=== PATIENT | female | born 1965 | race African-American/Black ===

== ENCOUNTER 2023-12-26 10:41 | Emergency (ER) | payer SELFPAY ==
[2023-12-26] MEDS ORDERED: NA CHLORIDE 0.9% 1,000 ML ONE (11:03)
[2023-12-26] MEDS ORDERED: NA CHLORIDE 0.9% 500 ML ONE (11:03)
--- NOTE | 2023-12-26 11:21 | RAD REPORT ---
EXAM DESCRIPTION: Kilo Single View12/26/2023 11:15 am CLINICAL HISTORY: Cough COMPARISON: none FINDINGS: The lungs appear clear of acute infiltrate. The heart is borderline enlarged IMPRESSION: No acute abnormalities displayed
[2023-12-26 11:42] LABS: Absolute Basophils 0.1 K/uL (0-0.5); Absolute Eosinophils 0.1 K/uL (0-0.5); Absolute Lymphocytes (CBC) 1.1 K/uL (0.7-4.9); Absolute Monocytes 0.5 K/uL (0.1-1.3); Absolute Neutrophil 3.2 K/uL (1.8-8.0); Basophils % 1.4 % (0-1.3); Eosinophils % 2.8 % (0-4.4); Hematocrit 41.4 % (36.0-45.0); Hemoglobin 13.6 g/dL (12.0-15.0); Lymphocytes % 21.7 % (15.3-44.8); MCH 34.7 pg (27.0-35.0); MCV 105.2 fL (80-100); MPV 8.1 fL (7.6-11.3); Neutrophils % 64.1 % (41.7-73.7); Platelets 240 thou/uL (152-406); RBC Red Blood Cell Count 3.94 M/uL (3.86-4.86); Red Cell Distribution Width 12.9 % (12.1-15.2)
[2023-12-26 11:43] LABS: Specific Gravity 1.017 (1.005-1.030); Sqamous Epithelial <5 /HPF (None Seen); Urine Bacteria None Seen /HPF (<20); Urine Bilirubin NEGATIVE (Negative); Urine Blood Negative (Negative); Urine Clarity Turbid (Clear); Urine Color Yellow (Yellow); Urine Culture Reflex Order NOT NEEDED; Urine Glucose NEGATIVE (Negative); Urine Ketones NEGATIVE (Negative); Urine Microscopic Reflex YN ORDER UMIC; Urine Mucus 2+ /HPF (None Seen); Urine Nitrite NEGATIVE (Negative); Urine Protein NEGATIVE (Negative); Urine RBC <5 /HPF (None Seen); Urine Urobilinogen Normal (Normal); Urine WBC <5 /HPF (<5)
[2023-12-26 11:44] LABS: Protime INR 1.28
[2023-12-26 12:06] LABS: Albumin 3.3 g/dL (3.4-5.0); Albumin/Globulin Ratio 0.8 (1.1-1.8); Anion Gap 5.8 mEq/L (5.0-15.0); Bilirubin Direct 0.2 mg/dL (0-0.2); Bilirubin Indirect, Calculated 0.2 mg/dL (0.2-0.8); Bilirubin Total 0.4 mg/dL (0.2-1.0); Globulin 3.9 g/dL (2.3-3.5); Magnesium 1.8 mg/dL (1.6-2.4); Potassium 3.8 mEq/L (3.5-5.1); Protein, Total 7.2 g/dL (6.4-8.2); Thyroid Stimulating Hormone 2.56 uIU/mL (0.358-3.740); Troponin High Sensitivity 7.7 pg/mL (<58.9)
[2023-12-26 12:22] LABS: Blood Morphology Comment NOTED (NOT SEEN); Macrocytosis 1+; Platelet Estimate ADEQ; White Blood Cell Scan OK (OK)
--- NOTE | 2023-12-26 14:57 | ER ---
Nurse's Notes [facility] Name: Lyssa Mcdaniel Age: 58 yrs Sex: Female : 1965 Arrival Date: 12/26/2023 Time: 10:41 Bed 19 Private MD: Diagnosis: Dizziness and giddiness;Alcohol abuse-HISTORY, NO ETOH PAST 1 WEEK Presentation: 12/25 10:43 Chief complaint: EMS states: pt is from [facility], currently in recovery for ETOH kc6 abuse. pts last drink was Friday and has been feeling dizzy, weak, and feeling like her heart rate is fast since last night. Coronavirus screen: At this time, the client does not indicate any symptoms associated with coronavirus-19. Ebola Screen: No symptoms or risks identified at this time. Initial Sepsis Screen: Does the patient meet any 2 criteria? No. Patient's initial sepsis screen is negative. Does the patient have a suspected source of infection? No. Patient's initial sepsis screen is negative. Risk Assessment: Do you want to hurt yourself or someone else? Patient reports no desire to harm self or others. Onset of symptoms was December 26, 2023. 10:43 Method Of Arrival: EMS: [facility] kc6 10:43 Acuity: SAVANNAH 3 kc6 Historical: - Allergies: 10:44 No Known Allergies; kc6 - PMHx: 10:44 Hypertensive disorder; Depressive disorder; kc6 10:44 Alcoholism; kc6 - PSHx: 10:44 None; kc6 - Immunization history:: Adult Immunizations up to date. - Infectious Disease History:: Denies. - Social history:: Smoking status: Patient denies any tobacco usage or history of. Screenin:45 [facility] ED Fall Risk Assessment (Adult) History of falling in the last 3 months, kc6 including since admission No falls in past 3 months (0 pts) Confusion or Disorientation No (0 pts) Intoxicated or Sedated No (0 pts) Impaired Gait No (0 pts) Mobility Assist Device Used No (0 pt) Altered Elimination No (0 pt) Score/Fall Risk Level 0 - 2 = Low Risk. Abuse screen: Denies threats or abuse. Denies injuries from another. Nutritional screening: No deficits noted. Tuberculosis screening: No symptoms or risk factors identified. Assessment: 11:00 General: Appears in no apparent distress. comfortable, well groomed, well developed, kc6 Behavior is calm, cooperative, appropriate for age, quiet. Pain: Denies pain. Neuro: Level of Consciousness is awake, alert, obeys commands, Oriented to person, place, time, situation, Appropriate for age Reports dizziness, weakness. Cardiovascular: Reports palpitations, Denies chest pain, Heart tones S1 S2 present Capillary refill < 3 seconds Rhythm is sinus rhythm. Respiratory: Airway is patent Trachea midline Respiratory effort is even, unlabored, Respiratory pattern is regular, symmetrical. GI: No signs and/or symptoms were reported involving the gastrointestinal system. : No signs and/or symptoms were reported regarding the genitourinary system. EENT: No signs and/or symptoms were reported regarding the EENT system. Derm: No signs and/or symptoms reported regarding the dermatologic system. Skin is intact, is healthy with good turgor, Skin is pink, warm \T\ dry. Musculoskeletal: No signs and/or symptoms reported regarding the musculoskeletal system. Circulation, motion, and sensation intact. Capillary refill < 3 seconds, Range of motion: intact in all extremities. 12:00 Reassessment: Patient appears in no apparent distress at this time. No changes from 6 previously documented assessment. Patient and/or family updated on plan of care and expected duration. Pain level reassessed. Patient is alert, oriented x 3, equal unlabored respirations, skin warm/dry/pink. 13:40 Reassessment: Patient appears in no apparent distress at this time. No changes from kc6 previously documented assessment. Patient and/or family updated on plan of care and expected duration. Pain level reassessed. Patient is alert, oriented x 3, equal unlabored respirations, skin warm/dry/pink. 14:40 Reassessment: Patient appears in no apparent distress at this time. No changes from 6 previously documented assessment. Patient and/or family updated on plan of care and expected duration. Pain level reassessed. Patient is alert, oriented x 3, equal unlabored respirations, skin warm/dry/pink. 15:19 Reassessment: SPOKE WITH NAOM[facility] AT [facility]. ETA FOR TRANSPORT IS 20MIN. PT OK TO WAIT [facility] FOR TRANSPORT IN THE LOBBY. Vital Signs: 10:43 BP 166 / 85; Pulse 63; Resp 15 S; Temp 97.3(O); Pulse Ox 100% on R/A; Weight 76.2 kg kc6 (R); Height 5 ft. 4 in. (R); 12:26 BP 166 / 107; Pulse 65; Resp 15 S; Pulse Ox 100% on R/A; kc6 13:40 BP 177 / 92; Pulse 64; Resp 18 S; Pulse Ox 99% on R/A; kc6 15:28 BP 177 / 85; Pulse 65; Resp 18 S; Pulse Ox 99% on R/A; kc6 10:43 Body Mass Index 28.84 (76.20 kg, 162.56 cm) kc6 ED Course: 10:42 Patient arrived in ED. daniela 10:42 Jay Jay Gould MD is Attending Physician. [facility] 10:43 Mali Zhao, ARMEN is Primary Nurse. kc6 10:44 Triage completed. kc6 10:44 Arm band placed on. kc6 10:45 Patient has correct armband on for positive identification. Bed in low position. Call kc6 light in reach. Side rails up X2. Client placed on continuous cardiac and pulse oximetry monitoring. NIBP monitoring applied. Warm blanket given. Pillow given. 11:17 XRAY Chest (1 view) In Process Unspecified. EDMS 11:34 Inserted saline lock: 22 gauge in left antecubital area, using aseptic technique. Blood kc6 collected. 14:46 CT Head Brain wo Cont In Process Unspecified. EDMS 15:27 No provider procedures requiring assistance completed. IV discontinued, intact, kc6 bleeding controlled, No redness/swelling at site. Pressure dressing applied. Administered Medications: 11:34 Drug: NS 0.9% IV 500 ml IV at bolus once Route: IV; Rate: bolus; Site: left antecubital;kc6 13:41 Follow up: Response: No adverse reaction; IV Status: Completed infusion; IV Intake: kc6 500ml 11:34 Drug: NS 0.9% IV 1000 ml IV at 125 ml/hr continuous Route: IV; Rate: 125 ml/hr; Site: kc6 left antecubital; 15:19 Drug: foLIC Acid IVPB 1 mg IVPB once Route: IVPB; Site: left antecubital; kc6 15:27 Follow up: Response: No adverse reaction; IV Status: Completed infusion; IV Intake: kc6 0.2ml 15:19 Drug: Thiamine IV 100 mg IV at bolus once Route: IV; Rate: bolus; Site: left kc6 antecubital; 15:27 Follow up: Response: No adverse reaction; IV Status: Completed infusion; IV Intake: 1ml kc6 Medication: 15:28 VIS not applicable for this client. kc6 Intake: 13:41 IV: 500ml; Total: 500ml. kc6 15:27 IV: 0ml; Total: 500ml. kc6 15:27 IV: 1ml; Total: 501ml. kc6 Outcome: 14:56 Discharge ordered by MD. suarez 15:28 Discharged to Rehab Facility kc6 15:28 Condition: improved 15:28 Discharge instructions given to patient, Instructed on discharge instructions, follow up and referral plans. medication usage, Demonstrated understanding of instructions, follow-up care, medications, Prescriptions given X 2, 15:29 Patient left the ED. kc6 Signatures: Dispatcher [employer] Jay Jay Cabrales MD MD cha Campbell, Kaitlyn RN RN kc6
--- NOTE | 2023-12-26 14:57 | EDPHYS ---
Physician Documentation [facility] Name: Lyssa Mcdaniel Age: 58 yrs Sex: Female : 1965 Arrival Date: 12/26/2023 Time: 10:41 Bed 19 Private MD: ED Physician Jay Jay Gould HPI: 12/25 14:26 This 58 yrs old Black Female presents to ER via EMS with complaints of General daniela Weakness, Dizziness, Palpitations. 14:26 The patient presents with dizziness, generalized weakness, lightheadedness. Onset: The daniela symptoms/episode began/occurred 2 day(s) ago. Context: occurred [place]. Modifying factors: The symptoms are alleviated by lying down, the symptoms are aggravated by standing up. Associated signs and symptoms: Pertinent positives: numbness. Severity of symptoms: At their worst the symptoms were mild in the emergency department the symptoms are unchanged. Patient's baseline: Neuro: alert and fully oriented. The patient has experienced similar episodes in the past, several times. Historical: - Allergies: 10:44 No Known Allergies; kc6 - PMHx: 10:44 Hypertensive disorder; Depressive disorder; kc6 10:44 Alcoholism; kc6 - PSHx: 10:44 None; kc6 - Immunization history:: Adult Immunizations up to date. - Infectious Disease History:: Denies. - Social history:: Smoking status: Patient denies any tobacco usage or history of. ROS: 14:29 Constitutional: Negative for fever, chills, and weight loss, Eyes: Negative for injury, daniela pain, redness, and discharge, ENT: Negative for injury, pain, and discharge, Neck: Negative for injury, pain, and swelling, Cardiovascular: Negative for chest pain, palpitations, and edema, Respiratory: Negative for shortness of breath, cough, wheezing, and pleuritic chest pain, Abdomen/GI: Negative for abdominal pain, nausea, vomiting, diarrhea, and constipation, Back: Negative for injury and pain, : Negative for injury, bleeding, discharge, and swelling, MS/Extremity: Negative for injury and deformity, Skin: Negative for injury, rash, and discoloration, Psych: Negative for depression, anxiety, suicide ideation, homicidal ideation, and hallucinations, Allergy/Immunology: Negative for hives, rash, and allergies, Endocrine: Negative for neck swelling, polydipsia, polyuria, polyphagia, and marked weight changes, Hematologic/Lymphatic: Negative for swollen nodes, abnormal bleeding, and unusual bruising, 14:29 Neuro: Positive for dizziness, weakness, Exam: 14:29 Constitutional: This is a well developed, well nourished patient who is awake, alert, daniela and in no acute distress. Head/Face: Normocephalic, atraumatic. Eyes: Pupils equal round and reactive to light, extra-ocular motions intact. Lids and lashes normal. Conjunctiva and sclera are non-icteric and not injected. Cornea within normal limits. Periorbital areas with no swelling, redness, or edema. ENT: Nares patent. No nasal discharge, no septal abnormalities noted. Tympanic membranes are normal and external auditory canals are clear. Oropharynx with no redness, swelling, or masses, exudates, or evidence of obstruction, uvula midline. Mucous membranes moist. Neck: Trachea midline, no thyromegaly or masses palpated, and no cervical lymphadenopathy. Supple, full range of motion without nuchal rigidity, or vertebral point tenderness. No Meningismus. Chest/axilla: Normal chest wall appearance and motion. Nontender with no deformity. No lesions are appreciated. Cardiovascular: Regular rate and rhythm with a normal S1 and S2. No gallops, murmurs, or rubs. Normal PMI, no JVD. No pulse deficits. Respiratory: Lungs have equal breath sounds bilaterally, clear to auscultation and percussion. No rales, rhonchi or wheezes noted. No increased work of breathing, no retractions or nasal flaring. Abdomen/GI: Soft, non-tender, with normal bowel sounds. No distension or tympany. No guarding or rebound. No evidence of tenderness throughout. Back: No spinal tenderness. No costovertebral tenderness. Full range of motion. Female : Normal external genitalia. Skin: Warm, dry with normal turgor. Normal color with no rashes, no lesions, and no evidence of cellulitis. MS/ Extremity: Pulses equal, no cyanosis. Neurovascular intact. Full, normal range of motion. Neuro: Awake and alert, GCS 15, oriented to person, place, time, and situation. Cranial nerves II-XII grossly intact. Motor strength 5/5 in all extremities. Sensory grossly intact. Cerebellar exam normal. Normal gait. Psych: Awake, alert, with orientation to person, place and time. Behavior, mood, and affect are within normal limits. 14:29 ECG was reviewed by the Attending Physician. Vital Signs: 10:43 BP 166 / 85; Pulse 63; Resp 15 S; Temp 97.3(O); Pulse Ox 100% on R/A; Weight 76.2 kg kc6 (R); Height 5 ft. 4 in. (R); 12:26 BP 166 / 107; Pulse 65; Resp 15 S; Pulse Ox 100% on R/A; kc6 13:40 BP 177 / 92; Pulse 64; Resp 18 S; Pulse Ox 99% on R/A; kc6 15:28 BP 177 / 85; Pulse 65; Resp 18 S; Pulse Ox 99% on R/A; kc6 10:43 Body Mass Index 28.84 (76.20 kg, 162.56 cm) kc6 MDM: 10:43 Patient medically screened. daniela 14:30 Differential diagnosis: arrythmia, dehydration. Differential Diagnosis altered mental daniela status, flu. Differential diagnosis: cardiac arrhythmia, head injury, hypovolemia, idiopathic dizziness, near-syncope, TIA. Data reviewed: vital signs, nurses notes, EMS record, lab test result(s), EKG, radiologic studies, CT scan, plain films. Consideration of Admission/Observation Escalation of care including admission/observation considered. I considered the following discharge prescriptions or medication management in the emergency department Medications were administered in the Emergency Department. See MAR. Independent interpretation of the following test(s) in the Emergency Department EKG: See my EKG interpretation above. Test considered but Not performed: MRI: no mri brain. Care significantly affected by the following chronic conditions: Hypertension, Obesity, depression, alcoholism. 12/25 10:46 Order name: Basic Metabolic Panel; Complete Time: 14:17 daniela 12/25 10:46 Order name: CBC with Diff; Complete Time: 14:17 12/25 10:46 Order name: LFT's; Complete Time: 14:17 12/25 10:46 Order name: Magnesium; Complete Time: 14:17 12/25 10:46 Order name: NT PRO-BNP; Complete Time: 14:17 12/25 10:46 Order name: PT-INR; Complete Time: 14:17 12/25 10:46 Order name: Troponin HS; Complete Time: 14:17 [facility] 12/25 10:46 Order name: TSH; Complete Time: 14:17 [facility] 12/25 10:47 Order name: Urinalysis w/ reflexes; Complete Time: 14:17 [facility] 12/25 12:22 Order name: CBC Smear Scan; Complete Time: 14:17 [facility] 12/25 10:46 Order name: XRAY Chest (1 view); Complete Time: 14:17 [facility] 12/25 14:26 Order name: CT Head Brain wo Cont [facility] 12/25 10:46 Order name: EKG; Complete Time: 10:47 [facility] 12/25 10:46 Order name: Cardiac monitoring; Complete Time: 11:34 [facility] 12/25 10:46 Order name: EKG - Nurse/Tech; Complete Time: :34 [facility] 12/25 10:46 Order name: IV Saline Lock; Complete Time: 11:34 [facility] 12/25 10:46 Order name: Labs collected and sent; Complete Time: 11:34 [facility] 12/25 10:46 Order name: O2 Per Protocol; Complete Time: 10:47 [facility] 12/25 10:46 Order name: O2 Sat Monitoring; Complete Time: 10:47 [facility] EC:29 Rate is 56 beats/min. NC interval is normal. QRS interval is normal. QT interval is daniela normal. No Q waves. T waves are Normal. No ST changes noted. Clinical impression: NSR w/ Non-specific ST/T Changes and LVH. Interpreted by me. Reviewed by me. Administered Medications: 11:34 Drug: NS 0.9% IV 500 ml IV at bolus once Route: IV; Rate: bolus; Site: left antecubital;6 13:41 Follow up: Response: No adverse reaction; IV Status: Completed infusion; IV Intake: kc6 500ml 11:34 Drug: NS 0.9% IV 1000 ml IV at 125 ml/hr continuous Route: IV; Rate: 125 ml/hr; Site: kc left antecubital; 15:19 Drug: foLIC Acid IVPB 1 mg IVPB once Route: IVPB; Site: left antecubital; kc6 15:27 Follow up: Response: No adverse reaction; IV Status: Completed infusion; IV Intake: kc6 0.2ml 15:19 Drug: Thiamine IV 100 mg IV at bolus once Route: IV; Rate: bolus; Site: left kc antecubital; 15:27 Follow up: Response: No adverse reaction; IV Status: Completed infusion; IV Intake: 1ml kc6 Disposition Summary: 12/26/23 14:56 Discharge Ordered Notes: Location: Home daniela Problem: new daniela Symptoms: have improved daniela Condition: Stable daniela Diagnosis - Dizziness and giddiness daniela - Alcohol abuse - HISTORY, NO ETOH PAST 1 WEEK daniela Followup: daniela - With: Private Physician - When: 2 - 3 days - Reason: Recheck today's complaints, Continuance of care, Re-evaluation by your physician Discharge Instructions: - Discharge Summary Sheet daniela - Dizziness daniela - Alcohol Abuse and Nutrition daniela - Dizziness, [id number] [facility] Forms: - Medication Reconciliation Form daniela - Antibiotic Education daniela - Prescription Opioid Use daniela - Patient Portal Instructions [facility] - Leadership Thank You Letter [facility] Prescriptions: - - take 1 tablet ORAL route once daily; 30 tablet; Refills: 0, Product Selection daniela Permitted - Meclizine 25 mg Oral Tablet - take 1 tablet ORAL route every 8 hours As needed; 30 tablet; Refills: 0, [facility] Product Selection Permitted Signatures: Dispatcher [employer] EDJay Jay Sherman MD MD cha Campbell, Kaitlyn RN RN kc6 Corrections: (The following items were deleted from the chart) 10:47 10:47 BASIC METABOLIC PANEL+C.LAB.BRZ ordered. EDMS EDMS 10:47 10:47 CBC+H.LAB.BRZ ordered. EDMS EDMS 10:47 10:47 HEPATIC FUNCTION+C.LAB.BRZ ordered. EDMS EDMS 10:47 10:47 MAGNESIUM+C.LAB.BRZ ordered. EDMS EDMS 10:47 10:47 PROBNP+C.LAB.BRZ ordered. EDMS EDMS 10:47 10:47 PROTIME (+INR)+COAG.LAB.BRZ ordered. EDMS EDMS 10:47 10:47 Troponin High Sensitivity+C.LAB.BRZ ordered. EDMS EDMS 10:47 10:47 THYROID STIMULAT HORMONE+C.LAB.BRZ ordered. EDMS EDMS 10:47 10:47 Urinalysis+U.LAB.BRZ ordered. EDMS EDMS
[2023-12-26] MEDS ORDERED: FOLIC ACID 5 MG/ML VIAL ONE (15:13)
[2023-12-26] MEDS ORDERED: THIAMINE 200 MG/2 ML INJ ONE (15:13)
--- NOTE | 2023-12-26 16:06 | RAD REPORT ---
EXAM DESCRIPTION: CT - Head Brain Wo Cont - 12/26/2023 2:44 pm CLINICAL HISTORY: DIZZINESS COMPARISON: No comparisons TECHNIQUE: Noncontrast head CT images were obtained without IV contrast. Multiplanar reformats were generated and reviewed. All CT scans are performed using dose optimization technique as appropriate and may include automated exposure control or mA/KV adjustment according to patient size. FINDINGS: No intracranial hemorrhage, mass, or edema. Midline structures are unremarkable. Normal ventricular caliber for age. Quezada-white matter differentiation is preserved, without evidence of acute infarct. No abnormal extra- axial fluid collections. Mastoid air cells and visualized portions of the paranasal sinuses are clear. No acute bony findings. IMPRESSION: No evidence of an acute intracranial process.
[2023-12-26 16:23] VITALS: BP 177/85; TEMP 97.3; O2SAT 99
--- NOTE | 2023-12-27 13:55 | EKG ---
Test Date: 2023-12-26 Test Time: 11:15:19 Qa Auditor: CORA MEASUREMENT RESULTS: Intervals: Rate: 56 PA: 144 QRSD: 66 QT: 460 QTc: 443 [place]: P: 41 PA: 144 QRS: 0 T: 2 INTERPRETIVE STATEMENTS: Sinus bradycardia Minimal voltage criteria for LVH, may be normal variant Nonspecific ST abnormality Abnormal ECG No previous ECG available for comparison Electronically Signed On 12-27-23 13:53:43 CDT by Ye Acosta
== END 2023-12-26 15:29 | disposition home or self-care (01) ==
LOC: ER 10:41
DX: R42 Dizziness and giddiness (principal); F10.20 Alcohol dependence, uncomplicated
CPT/HCPCS: 36415; 70450; 71045; 80048; 80076; 81001; 83735; 83880; 84443; 84484; 85025; 85610; 93005; 96361; 96374; 96375; 99284; J3411; J7030; J7040